=== PATIENT | female | born 1990 ===

== ENCOUNTER 2018-01-19 02:26 | Emergency (ER) | payer MEDICAID ==
[2018-01-19 02:45] VITALS: BMI 24.3
[2018-01-19] MEDS ORDERED: Morphine 4 mg/ml ISec IVP STA (02:49)
[2018-01-19] MEDS ORDERED: Sodium Chloride 0.9% 1,000 ML IV STA (02:49)
--- NOTE | 2018-01-19 02:58 | ED PDOC ---
Arrival/HPI - General Chief Complaint: Abdominal Pain Time Seen by Provider: 01/19/18 02:43 Historian: Patient - History of Present Illness Narrative History of Present Illness (Text): 01/19/18 02:57 A 27 year old female, LMP was two weeks ago, whose past medical history includes , presents to the emergency department complaining of RLQ abdominal pain for the last two days, pain develops at night. Patient describes the pain as stabbing feeling. No history of appendectomy. Patient denies any nausea, vomiting, diarrhea or any other complaints at this time. Time/Duration: Other (2 days) Symptom Onset: Sudden Symptom Course: Unchanged Activities at Onset: Rest Context: Home Past Medical History - Psychiatric Hx Substance Use: No Family/Social History - Physician Review Nursing Documentation Reviewed: Yes Family/Social History: No Known Family HX Smoking Status: Never Smoked Hx Alcohol Use: No Hx Substance Use: No Allergies/Home Meds Allergies/Adverse Reactions: Allergies No Known Allergies Allergy (Verified 01/19/18 02:45) Review of Systems - Physician Review All systems were reviewed & negative as marked: Yes - Review of Systems Constitutional: absent: Fevers Gastrointestinal: Abdominal Pain (RLQ ). absent: Diarrhea, Nausea, Vomiting Physical Exam Vital Signs Reviewed: Yes Vital Signs Temp Pulse Resp BP Pulse Ox 01/19/18 07:50 98 F 72 18 121/72 99 01/19/18 06:29 69 18 111/58 L 99 Appearance: Positive for: Well-Appearing, Non-Toxic, Comfortable Pain Distress: None Mental Status: Positive for: Alert and Oriented X 3 - Systems Exam Head: Present: Atraumatic, Normocephalic Pupils: Present: PERRL Extroacular Muscles: Present: EOMI Conjunctiva: Present: Normal Mouth: Present: Moist Mucous Membranes Neck: Present: Normal Range of Motion Respiratory/Chest: Present: Clear to Auscultation, Good Air Exchange. No: Respiratory Distress, Accessory Muscle Use Cardiovascular: Present: Regular Rate and Rhythm, Normal S1, S2. No: Murmurs Abdomen: Present: Normal Bowel Sounds, McBurney's Point Tender, Other (positive heel strike exam, right leg). No: Distention, Peritoneal Signs Back: Present: Normal Inspection Upper Extremity: Present: Normal Inspection. No: Cyanosis, Edema Lower Extremity: Present: Normal Inspection, Other (positive heel strike exam, right leg). No: Edema Neurological: Present: GCS=15, CN II-XII Intact, Speech Normal Skin: Present: Warm, Dry, Normal Color. No: Rashes Psychiatric: Present: Alert, Oriented x 3, Normal Insight, Normal Concentration Medical Decision Making ED Course and Treatment: 01/19/18 02:55 Impression: A 27 year old female with RLQ abdominal pain. Differential Diagnosis included but are not limited to: RLQ abdominal pain r/o appendicitis, ovarian cyst Plan: -- CT abdomen and pelvis -- labs -- Urinalysis -- IV fluids, Morphine, Toradol, Zofran -- Reassess and disposition Progress Notes: - Lab Interpretations Lab Results: 01/19/18 03:35 01/19/18 03:35 Lab Results 01/19/18 03:35: Sodium 140, Potassium 3.7, Chloride 105, Carbon Dioxide 27, Anion Gap 12, BUN 13, Creatinine 0.6 L, Est GFR ( Amer) > 60, Est GFR ( Non-Af Amer) > 60, Random Glucose 92, Calcium 9.0, Total Bilirubin 0.3, AST 24, ALT 28, Alkaline Phosphatase 50, Total Protein 7.0, Albumin 3.8, Globulin 3.2, Albumin/Globulin Ratio 1.2 01/19/18 03:35: Urine Color Yellow, Urine Appearance Clear, Urine pH 7.0, Ur Specific [place] 1.020, Urine Protein Negative, Urine Glucose (UA) Negative, Urine Ketones Trace H, Urine Blood Negative, Urine Nitrate Negative, Urine Bilirubin Negative, Urine Urobilinogen 0.2, Ur Leukocyte Esterase Negative 01/19/18 03:35: PT 12.8 H, INR 1.12 H 01/19/18 03:35: WBC 8.6, RBC 4.12, Hgb 11.5 L, Hct 35.8 L, MCV 86.9, MCH 27.9, MCHC 32.1, RDW 13.4, Plt Count 273, MPV 10.0, Gran % 55.4, Lymph % (Auto) 32.8, [place] % (Auto) 9.7 H, Eos % (Auto) 1.6, Baso % (Auto) 0.5, Gran # 4.77, Lymph # ( Auto) 2.8, [place] # (Auto) 0.8 H, Eos # (Auto) 0.1, Baso # (Auto) 0.04 I have reviewed the lab results: Yes - RAD Interpretation Radiology Orders: 01/19/18 02:49 ABDOMEN & PELVIS [ABD PELVIS PO & IV CONTRAST] [CT] Stat - Medication Orders Current Medication Orders: Discontinued Medications Sodium Chloride (Sodium Chloride 0.9%) 1,000 mls @ 999 mls/hr IV .Q1H1M STA Stop: 01/19/18 03:49 Last Admin: 01/19/18 03:40 Dose: 999 mls/hr eMAR Start Stop Document 01/19/18 03:40 SS (Rec: 01/19/18 03:40 [facility] [id number][place] Intravenous Solution Start Date 01/19/18 Start Time 03:30 Ketorolac Tromethamine (Toradol) 30 mg IVP STAT STA Stop: 01/19/18 02:50 Last Admin: 01/19/18 03:40 Dose: 30 mg MAR Pain Assessment Document 01/19/18 03:40 SS (Rec: 01/19/18 03:40 [id number]) Pain Reassessment Is this a pain reassessment? No Sleep Is patient sleeping during reassessment? No Presence of Pain Presence of Pain Yes Pain Scale Used Pain Scale Used Numeric Location Left, Right or Bilateral Right Upper or Lower Lower Pain Location Body Site Abdomen Description Description Sharp Intensity of Pain at present 8 Pain Behavior Grasping Site Rubbing Site Restlessness IVP Administration Document 01/19/18 03:40 SS (Rec: 01/19/18 03:40 [facility] [id number] Charges for Administration # of IVP Administrations 1 Morphine Sulfate (Morphine) 4 mg IVP STAT STA Stop: 01/19/18 02:50 Last Admin: 01/19/18 03:40 Dose: 4 mg MAR Pain Assessment Document 01/19/18 03:40 SS (Rec: 01/19/18 03:41 [facility] [id number]) Pain Reassessment Is this a pain reassessment? No Sleep Is patient sleeping during reassessment? No Presence of Pain Presence of Pain Yes Pain Scale Used Pain Scale Used Numeric Location Left, Right or Bilateral Right Upper or Lower Lower Pain Location Body Site Abdomen Description Description Sharp Intensity of Pain at present 8 IVP Administration Document 01/19/18 03:40 SS (Rec: 01/19/18 03:41 [facility] [id number]) Charges for Administration # of IVP Administrations 1 Ondansetron HCl (Zofran Inj) 8 mg IVP STAT STA Stop: 01/19/18 02:50 Last Admin: 01/19/18 03:33 Dose: 8 mg IVP Administration Document 01/19/18 03:33 SS (Rec: 01/19/18 03:39 [facility] [id number]) Charges for Administration # of IVP Administrations 1 - PA / CASH PROCESSOR / Resident Statement MD/DO has reviewed & agrees with the documentation as recorded. - Scribe Statement The provider has reviewed the documentation as recorded by the Enrique Suarez Provider Scribe Attestation: All medical record entries made by the Scribe were at my direction and personally dictated by me. I have reviewed the chart and agree that the record accurately reflects my personal performance of the history, physical exam, medical decision making, and the department course for this patient. I have also personally directed, reviewed, and agree with the discharge instructions and disposition. Disposition/Present on Arrival - Present on Arrival Any Indicators Present on Arrival: No History of DVT/PE: No History of Uncontrolled Diabetes: No Urinary Catheter: No History of Decub. Ulcer: No History Surgical Site Infection Following: None - Disposition Have Diagnosis and Disposition been Completed?: Yes Diagnosis: Constipation Disposition: HOME/ ROUTINE Disposition Time: 08:00 Patient Plan: Discharge Condition: STABLE Discharge Instructions (ExitCare): Constipation, Adult (DC) Prescriptions: Docusate [Colace] 100 mg PO BID #30 cap Polyethylene Glycol 3350 [Miralax] 17 gm PO DAILY #238 gm Forms: [employer] (Faroese)
[2018-01-19] MEDS ORDERED: Iohexol 240 (50 ml) ONE (03:31)
[2018-01-19 04:05] LABS: BASO # 0.04 K/mm3 (0.0-2.0); BASO % 0.5 % (0.0-3.0); EOS # 0.1 (0.0-0.7); EOS % 1.6 % (1.5-5.0); GRAN # 4.77 (1.4-6.5); GRAN % 55.4 % (50.0-68.0); HEMOGLOBIN 11.5 g/dL (12.0-16.0); LYMPH # 2.8 (1.2-3.4); LYMPH % 32.8 % (22.0-35.0); MEAN CELL VOLUME 86.9 fl (80.0-105.0); MEAN CORPUSCULAR HEMOGLOBIN 27.9 pg (25.0-35.0); MEAN CORPUSCULAR HGB CONC 32.1 g/dl (31.0-37.0); MONO # 0.8 (0.1-0.6); MONO % 9.7 % (1.0-6.0); RBC 4.12 10^6/uL (3.5-6.1); RED CELL DISTRIBUTION WIDTH 13.4 % (11.5-14.5); WHITE BLOOD COUNT 8.6 10^3/ul (4.5-11.0)
[2018-01-19 04:11] LABS: URINE BILIRUBIN NEGATIVE (NEGATIVE); URINE BLOOD NEGATIVE (NEGATIVE); URINE GLUCOSE (UA) NEGATIVE (NEGATIVE); URINE LEUKOCYTE ESTERASE NEGATIVE Leu/uL (NEGATIVE); URINE PROTEIN NEGATIVE mg/dL (<30 mg/dL); URINE UROBILINOGEN 0.2 E.U./dL (<1 E.U./dL)
[2018-01-19 04:19] LABS: INR 1.12 (0.93-1.08); PROTHROMBIN TIME 12.8 SECONDS (9.4-12.5)
[2018-01-19 04:21] LABS: URINE APPEARANCE CLEAR (CLEAR); URINE COLOR YELLOW (YELLOW)
[2018-01-19] MEDS ORDERED: Iohexol 350 MG/100 ML VIAL ONE (05:27)
[2018-01-19 05:32] LABS: ALB/GLOB RATIO 1.2 (1.1-1.8); ALBUMIN 3.8 g/dL (3.0-4.8); ALT/SGPT 28 U/L (7-56); AST/SGOT 24 U/L (14-36); BLOOD UREA NITROGEN 13 mg/dL (7-21); GFR AFRICAN-AMERICAN > 60; GFR NON-AFRICAN AMERICAN > 60
[2018-01-19 06:29] VITALS: RESP 18; O2SAT 99
--- NOTE | 2018-01-19 07:11 | CT ---
EXAM: CT Abdomen and Pelvis With Intravenous Contrast CLINICAL HISTORY: 27 years old, female; Pain; Abdominal pain; Generalized; Additional info: ? Appendicitis vs ovarian cyst TECHNIQUE: Axial computed tomography images of the abdomen and pelvis with intravenous contrast. All CT scans at this facility use one or more dose reduction techniques, viz.: automated exposure control; ma/kV adjustment per patient size (including targeted exams where dose is matched to indication; i.e. head); or iterative reconstruction technique. Coronal and sagittal reformatted images were created and reviewed. CONTRAST: 96 mL of OMNI 350 administered intravenously. COMPARISON: No relevant prior studies available. FINDINGS: Lower thorax: No acute findings. ABDOMEN: Liver: Unremarkable. No mass. Gallbladder and bile ducts: Unremarkable. No calcified stones. No ductal dilation. Pancreas: Unremarkable. No mass. No ductal dilation. Spleen: Unremarkable. No splenomegaly. Adrenals: Unremarkable. No mass. Kidneys and ureters: Unremarkable. No solid mass. No hydronephrosis. Stomach and bowel: Mild diffuse small bowel distention without a transition point to suggest small bowel obstruction. Possible mild ileus. No mucosal thickening. There is a moderate amount of retained stool throughout the colon.There is no wall thickening or pericolonic stranding to suggest colitis. Appendix: No findings to suggest acute appendicitis. Normal appendix. PELVIS: Bladder: Distended but otherwise unremarkable. No mass. Reproductive: Unremarkable as visualized. The ovaries are grossly unremarkable. No adnexal cysts or mass. ABDOMEN and PELVIS: Intraperitoneal space: Unremarkable. No free air. No significant fluid collection. Bones/joints: No acute fracture. No dislocation. Soft tissues: Unremarkable. Vasculature: Unremarkable. No abdominal aortic aneurysm. Lymph nodes: Unremarkable. No enlarged lymph nodes. IMPRESSION: No acute appendicitis. No evidence of adnexal cyst or mass. Possible mild small bowel ileus. No small bowel obstruction
--- NOTE | 2018-01-19 07:47 | ED PDOC ---
Physical Exam Vital Signs Pulse Resp BP Pulse Ox 01/19/18 06:29 69 18 111/58 L 99 Medical Decision Making ED Course and Treatment: Patient signed out to me at change of shift pending CT read. 27 y/o F p/w RLQ pain without vomiting, nausea, or fever. Pain began in RLQ, not elsewhere. On exam, RLQ tenderness without guarding or rebound. Accession No. : [id number] Patient Name / ID : EMMIE CONLEY / [id number] Exam Date : 01/19/2018 05:53:23 ( Approved ) Study Comment : Sex / Age : F / 27Y Creator : ALONDRA EISENBERG Dictator : Cloth Bleaching Range Tender : Ict Security Specialist : ALONDRA EISENBERG Approver2 : Report Date : 01/19/2018 07:10:00 My Comment : [facility] Division of Radiology [address] [place] [address] Tel. no. Patient Name: JARVIS CARROLL Pt. Address: [address] [place] [address] Rec #: [id number] [place] [address]: Poncho Moore DO Pt Order Location: ED : 1990 Female Age: 27 Order #: [id number] Reason for exam: ? Appendicitis vs Ovarian Cyst CT Scan ABD PELVIS PO IV CONTRAST Exam Date: 01/19/18 This imaging exam was performed at [facility] EXAM: CT Abdomen and Pelvis With Intravenous Contrast CLINICAL HISTORY: 27 years old, female; Pain; Abdominal pain; Generalized; Additional info: ? Appendicitis vs ovarian cyst TECHNIQUE: Axial computed tomography images of the abdomen and pelvis with intravenous contrast. All CT scans at this facility use one or more dose reduction techniques, viz.: automated exposure control; ma/kV adjustment per patient size (including targeted exams where dose is matched to indication; i.e. head); or iterative reconstruction technique. Coronal and sagittal reformatted images were created and reviewed. CONTRAST: 96 mL of OMNI 350 administered intravenously. COMPARISON: No relevant prior studies available. FINDINGS: Lower thorax: No acute findings. ABDOMEN: Liver: Unremarkable. No mass. Gallbladder and bile ducts: Unremarkable. No calcified stones. No ductal dilation. Pancreas: Unremarkable. No mass. No ductal dilation. Spleen: Unremarkable. No splenomegaly. Adrenals: Unremarkable. No mass. Kidneys and ureters: Unremarkable. No solid mass. No hydronephrosis. Stomach and bowel: Mild diffuse small bowel distention without a transition point to suggest small bowel obstruction. Possible mild ileus. No mucosal thickening. There is a moderate amount of retained stool throughout the colon.There is no wall thickening or pericolonic stranding to suggest colitis. Appendix: No findings to suggest acute appendicitis. Normal appendix. PELVIS: Bladder: Distended but otherwise unremarkable. No mass. Reproductive: Unremarkable as visualized. The ovaries are grossly unremarkable. No adnexal cysts or mass. ABDOMEN and PELVIS: Intraperitoneal space: Unremarkable. No free air. No significant fluid collection. Bones/joints: No acute fracture. No dislocation. Soft tissues: Unremarkable. Vasculature: Unremarkable. No abdominal aortic aneurysm. Lymph nodes: Unremarkable. No enlarged lymph nodes. IMPRESSION: No acute appendicitis. No evidence of adnexal cyst or mass. Possible mild small bowel ileus. No small bowel obstruction Dictated By: Alondra Eisenberg MD Dictated Date/Time: 01/19/18709 Signed By: Alondra Kirk MD Date Signed: 709 Transcribed By: VIANEY Transcribe Date/Time : 01/19/18709 LUIS/DON - Lab Interpretations Lab Results: 01/19/18 03:35 01/19/18 03:35 Lab Results 01/19/18 03:35: Sodium 140, Potassium 3.7, Chloride 105, Carbon Dioxide 27, Anion Gap 12, BUN 13, Creatinine 0.6 L, Est GFR ( Amer) > 60, Est GFR ( Non-Af Amer) > 60, Random Glucose 92, Calcium 9.0, Total Bilirubin 0.3, AST 24, ALT 28, Alkaline Phosphatase 50, Total Protein 7.0, Albumin 3.8, Globulin 3.2, Albumin/Globulin Ratio 1.2 01/19/18 03:35: Urine Color Yellow, Urine Appearance Clear, Urine pH 7.0, Ur Specific [place] 1.020, Urine Protein Negative, Urine Glucose (UA) Negative, Urine Ketones Trace H, Urine Blood Negative, Urine Nitrate Negative, Urine Bilirubin Negative, Urine Urobilinogen 0.2, Ur Leukocyte Esterase Negative 01/19/18 03:35: PT 12.8 H, INR 1.12 H 01/19/18 03:35: WBC 8.6, RBC 4.12, Hgb 11.5 L, Hct 35.8 L, MCV 86.9, MCH 27.9, MCHC 32.1, RDW 13.4, Plt Count 273, MPV 10.0, Gran % 55.4, Lymph % (Auto) 32.8, [place] % (Auto) 9.7 H, Eos % (Auto) 1.6, Baso % (Auto) 0.5, Gran # 4.77, Lymph # ( Auto) 2.8, [place] # (Auto) 0.8 H, Eos # (Auto) 0.1, Baso # (Auto) 0.04 - RAD Interpretation Radiology Orders: 01/19/18 02:49 ABDOMEN & PELVIS [ABD PELVIS PO & IV CONTRAST] [CT] Stat - Medication Orders Current Medication Orders: Discontinued Medications Sodium Chloride (Sodium Chloride 0.9%) 1,000 mls @ 999 mls/hr IV .Q1H1M STA Stop: 01/19/18 03:49 Last Admin: 01/19/18 03:40 Dose: 999 mls/hr eMAR Start Stop Document 01/19/18 03:40 SS (Rec: 01/19/18 03:40 [facility] [id number]) Intravenous Solution Start Date 01/19/18 Start Time 03:30 Ketorolac Tromethamine (Toradol) 30 mg IVP STAT STA Stop: 01/19/18 02:50 Last Admin: 01/19/18 03:40 Dose: 30 mg MAR Pain Assessment Document 01/19/18 03:40 SS (Rec: 01/19/18 03:40 [id number]) Pain Reassessment Is this a pain reassessment? No Sleep Is patient sleeping during reassessment? No Presence of Pain Presence of Pain Yes Pain Scale Used Pain Scale Used Numeric Location Left, Right or Bilateral Right Upper or Lower Lower Pain Location Body Site Abdomen Description Description Sharp Intensity of Pain at present 8 Pain Behavior Grasping Site Rubbing Site Restlessness IVP Administration Document 01/19/18 03:40 SS (Rec: 01/19/18 03:40 [facility] [id number]) Charges for Administration # of IVP Administrations 1 Morphine Sulfate (Morphine) 4 mg IVP STAT STA Stop: 01/19/18 02:50 Last Admin: 01/19/18 03:40 Dose: 4 mg MAR Pain Assessment Document 01/19/18 03:40 SS (Rec: 01/19/18 03:41 [facility] [id number]) Pain Reassessment Is this a pain reassessment? No Sleep Is patient sleeping during reassessment? No Presence of Pain Presence of Pain Yes Pain Scale Used Pain Scale Used Numeric Location Left, Right or Bilateral Right Upper or Lower Lower Pain Location Body Site Abdomen Description Description Sharp Intensity of Pain at present 8 IVP Administration Document 01/19/18 03:40 SS (Rec: 01/19/18 03:41 [facility] [id number]) Charges for Administration # of IVP Administrations 1 Ondansetron HCl (Zofran Inj) 8 mg IVP STAT STA Stop: 01/19/18 02:50 Last Admin: 01/19/18 03:33 Dose: 8 mg IVP Administration Document 01/19/18 03:33 SS (Rec: 01/19/18 03:39 [facility] [id number]) Charges for Administration # of IVP Administrations 1 Disposition/Present on Arrival - Present on Arrival Any Indicators Present on Arrival: No History of DVT/PE: No History of Uncontrolled Diabetes: No Urinary Catheter: No History of Decub. Ulcer: No History Surgical Site Infection Following: None - Disposition Have Diagnosis and Disposition been Completed?: Yes Diagnosis: Constipation Disposition: HOME/ ROUTINE Disposition Time: 07:46 Patient Plan: Discharge Condition: STABLE Discharge Instructions (ExitCare): Constipation, Adult (DC) Prescriptions: Docusate [Colace] 100 mg PO BID #30 cap Polyethylene Glycol 3350 [Miralax] 17 gm PO DAILY #238 gm Forms: [employer] (Bhutanese)
[2018-01-19 08:15] VITALS: BP 121/72; PULSE 72; TEMP 98
== END 2018-01-19 08:10 | disposition home or self-care (01) ==
LOC: ED 02:26
DX: K59.00 Constipation, unspecified (principal)
CPT/HCPCS: 74177; 80053; 81003; 81025; 85025; 85610; 96374; 96375; 99285; J1885; J2270; J2405; J7040; Q9966; Q9967